=== PATIENT | female | born 1975 | race American Indian/Alaskan Native ===

== ENCOUNTER 2016-10-18 11:04 | Outpatient (CLI) | payer BC ==
--- NOTE | 2016-10-18 14:34 | Mammography Report ---
Bilateral digital mammogram with tomosynthesis: Compared to 07/03/16. CAD study utilized. Findings: Scattered glandular parenchyma bilaterally. Oval density approximate 12:00 position right breast measuring 5 mm in diameter. Seen on tomosynthesis. Benign axilla. No microcalcification. Impression: Bone density right breast. Recommend sonographic examination. BI-RADS CATEGORY: 0 = Needs additional imaging evaluation ACR BI-RADS MAMMOGRAPHIC CODES: 0 = Needs additional imaging evaluation; 1 = Negative; 2 = Benign; 3 = Probably benign; 4 = Suspicious; 5 = Malignant; 6 = Known biopsy-proven malignancy COMMENT: 1. Dense breast tissue, i.e., adenosis, fibrocystic changes, etc., may obscure an underlying neoplasm. 2. Approximately 10% of cancers are not detected with mammography. 3. A negative mammography report should not delay biopsy if a clinically suspicious mass is present. COMMENT: Patient follow-up letters are generated in [employer].
== END 2016-10-18 11:05 | disposition home or self-care (01) ==
LOC: MAMMO 11:04
PROVIDERS: ATTEND Family Medicine
DX: Z12.31 Encounter for screening mammogram for malignant neoplasm of breast (principal)
CPT/HCPCS: 77067; G0202

== ENCOUNTER 2016-11-28 09:50 | Outpatient (CLI) | payer BC ==
--- NOTE | 2016-11-28 15:26 | Ultrasound Report ---
Right mammogram and right breast ultrasound: Additional compression imaging is performed based on recent screening exam of October 18. No abnormal findings appreciated in the CC compression of the medial breast. In the lateral projection there is an elongated area of slightly increased density measuring 16 mm. This is consistent with the findings on the fabio mammogram. Global right breast ultrasound failed to identify any evidence of mass or shadowing. Impression: Probably benign density of the right breast. Recommendation: Repeat mammogram in 6 months to reevaluate finding. The findings and recommendations have been discussed with the patient. BI-RADS CATEGORY: 3 = Probably benign ACR BI-RADS MAMMOGRAPHIC CODES: 0 = Needs additional imaging evaluation; 1 = Negative; 2 = Benign; 3 = Probably benign; 4 = Suspicious; 5 = Malignant; 6 = Known biopsy-proven malignancy COMMENT: 1. Dense breast tissue, i.e., adenosis, fibrocystic changes, etc., may obscure an underlying neoplasm. 2. Approximately 10% of cancers are not detected with mammography. 3. A negative mammography report should not delay biopsy if a clinically suspicious mass is present.
== END 2016-11-28 09:51 | disposition home or self-care (01) ==
LOC: MAMMO 09:50
PROVIDERS: ATTEND Family Medicine
DX: R92.8 Other abnormal and inconclusive findings on diagnostic imaging of breast (principal)
CPT/HCPCS: 76641; G0206

== ENCOUNTER 2017-06-04 12:22 | Outpatient (CLI) | payer BC ==
--- NOTE | 2017-06-04 13:49 | Mammography Report ---
RIGHT DIGITAL DIAGNOSTIC MAMMOGRAM : 06/04/17 12:22:00 CLINICAL: Six month followup for asymmetry COMPARISON:10/18/16 and 11/28/16 mammograms. FINDINGS: Routine views plus a CC spot compression view were performed. Normal fibroglandular structures with no mass, architectural distortion or suspicious calcifications. IMPRESSION: Negative Mammogram. BI-RADS CATEGORY: 1 -- Negative RECOMMENDATION: Return to routine mammographic screening. ACR BI-RADS MAMMOGRAPHIC CODES: 0 = Needs additional imaging evaluation; 1 = Negative; 2 = Benign; 3 = Probably benign; 4 = Suspicious; 5 = Malignant; 6 = Known biopsy-proven malignancy COMMENT: 1. Dense breast tissue, i.e., adenosis, fibrocystic changes, etc., may obscure an underlying neoplasm. 2. Approximately 10% of cancers are not detected with mammography. 3. A negative mammography report should not delay biopsy if a clinically suspicious mass is present. COMMENT: Patient follow-up letters are generated via our [employer] application.
== END 2017-06-04 12:23 | disposition home or self-care (01) ==
LOC: MAMMO 12:22
PROVIDERS: ATTEND Family Medicine
DX: R92.2 Inconclusive mammogram (principal)
CPT/HCPCS: G0206-RT

== ENCOUNTER 2018-05-28 07:39 | Outpatient (CLI) | payer BC ==
--- NOTE | 2018-05-28 08:23 | Mammography Report ---
Bilateral mammogram: Compared to 10/18/16 and and 06/04/17. CAD study utilized. Findings: Predominance adipose tissue bilaterally. Benign density right breast without interval change. No microcalcification. Benign axillary nodes clear Impression: Benign findings. Annual followup recommended. BI-RADS CATEGORY: 2 = Benign ACR BI-RADS MAMMOGRAPHIC CODES: 0 = Needs additional imaging evaluation; 1 = Negative; 2 = Benign; 3 = Probably benign; 4 = Suspicious; 5 = Malignant; 6 = Known biopsy-proven malignancy COMMENT: 1. Dense breast tissue, i.e., adenosis, fibrocystic changes, etc., may obscure an underlying neoplasm. 2. Approximately 10% of cancers are not detected with mammography. 3. A negative mammography report should not delay biopsy if a clinically suspicious mass is present. COMMENT: Patient follow-up letters are generated in [employer].
== END 2018-05-28 07:40 | disposition home or self-care (01) ==
LOC: MAMMO 07:39
PROVIDERS: ATTEND Obstetrics & Gynecology
DX: Z12.31 Encounter for screening mammogram for malignant neoplasm of breast (principal)
CPT/HCPCS: 77067

== ENCOUNTER 2019-01-15 13:01 | Outpatient (CLI) | payer BC ==
--- NOTE | 2019-01-15 13:43 | XRay Report ---
BILATERAL ANKLES, 3 VIEWS History: Bilateral ankle pain. Findings: Normal bone mineralization. No acute osseous findings or joint pathology is detected. The soft tissues are unremarkable. Impression: Bilateral ankles within normal limits.
--- NOTE | 2019-01-15 13:43 | XRay Report ---
BILATERAL FEET, 3 VIEWS History: Bilateral foot pain. Findings: Normal bone mineralization. Small to medium bilateral plantar spurs are identified. The bony structures are intact. The joint spaces are normal. The soft tissues are unremarkable. Impression: Bilateral plantar spurs.
== END 2019-01-15 13:02 | disposition home or self-care (01) ==
LOC: XRAY 13:01
PROVIDERS: ATTEND Podiatrist Foot & Ankle Surgery
DX: M19.072 Primary osteoarthritis, left ankle and foot (principal); M19.071 Primary osteoarthritis, right ankle and foot; M77.31 Calcaneal spur, right foot; M77.32 Calcaneal spur, left foot

== ENCOUNTER 2019-01-27 06:46 | Outpatient (CLI) | payer BC ==
[2019-01-27 07:11] LABS: Bilirubin,Urine NEG (Negative); Blood,Urine NEG (Negative); Color,Urine Straw (Yellow); Protein,Urine <15 mg/dL mg/dL (Negative); Urobilinogen,Urine < 2.0 mg/dL (<2.0)
[2019-01-27 07:20] LABS: WBC,Urine < 1.0 /HPF (0.0-6.0)
[2019-01-27 07:30] LABS: Eosinophils # (Auto) 0.1 K/mm3 (0.0-0.4); Eosinophils % (Auto) 2.2 % (0.0-4.3); Hematocrit 39.2 % (30.3-42.9); Hemoglobin 12.8 gm/dl (10.1-14.3); Lymphocytes # (Auto) 1.1 K/mm3 (1.2-5.4); Lymphocytes % (Auto) 26.8 % (13.4-35.0); Mean Corpuscular HGB Conc 33 % (30-34); Mean Corpuscular Volume 85 fl (79-97); Monocytes # (Auto) 0.4 K/mm3 (0.0-0.8); Monocytes % (Auto) 10.7 % (0.0-7.3); Platelet Count 243 K/mm3 (140-440); Red Cell Distribution Width 14.6 % (13.2-15.2)
[2019-01-27 07:52] LABS: Erythrocyte Sedimentation Rate 16 mm/Hr (0-20)
[2019-01-27 14:39] LABS: Alanine Aminotransferase 13 units/L (7-56); Albumin 4.2 g/dL (3.9-5); BUN/Creatinine Ratio 17; Blood Urea Nitrogen 12 mg/dL (7-17); Calcium 9.6 mg/dL (8.4-10.2); Hemolysis Index 9
[2019-01-27 20:10] LABS: Chol/HDL Ratio 2.06 %; HDL Cholesterol 74 mg/dL (40-59); LDL Cholesterol,Direct 72 mg/dL (50-130)
[2019-01-29 21:55] LABS: ANA Screen, IFA Negative (Negative)
[2019-01-30 11:27] LABS: Vitamin D, 25-OH, D2 <4 ng/mL
== END 2019-01-27 06:47 | disposition home or self-care (01) ==
LOC: LAB 06:46
DX: Z13.828 Encounter for screening for other musculoskeletal disorder (principal); Z13.1 Encounter for screening for diabetes mellitus; R79.89 Other specified abnormal findings of blood chemistry
CPT/HCPCS: 36415; 80053; 80061; 81001; 82306; 82607; 82747; 83036; 84443; 85025; 85652; 86038; 86140

== ENCOUNTER 2020-07-06 06:46 | Outpatient (CLI) | payer BC ==
[2020-07-06 07:38] LABS: Basophils % (Auto) 1.1 % (0.0-1.8); Eosinophils # (Auto) 0.1 K/mm3 (0.0-0.4); Eosinophils % (Auto) 2.1 % (0.0-4.3); Hematocrit 35.8 % (30.3-42.9); Hemoglobin 12.3 gm/dl (10.1-14.3); Lymphocytes % (Auto) 27.7 % (13.4-35.0); Mean Corpuscular HGB Conc 34 % (30-34); Mean Corpuscular Volume 83 fl (79-97); Monocytes # (Auto) 0.5 K/mm3 (0.0-0.8); Monocytes % (Auto) 13.5 % (0.0-7.3); Platelet Count 247 K/mm3 (140-440); Red Blood Count 4.31 M/mm3 (3.65-5.03); Red Cell Distribution Width 14.9 % (13.2-15.2)
[2020-07-06 08:09] LABS: Alanine Aminotransferase 17 units/L (7-56); BUN/Creatinine Ratio 21; Blood Urea Nitrogen 17 mg/dL (7-17); Calcium 9.4 mg/dL (8.4-10.2); Chol/HDL Ratio 2.14 %; HDL Cholesterol 90 mg/dL (40-59); Hemolysis Index 0; LDL Cholesterol,Direct 107 mg/dL (50-130)
--- NOTE | 2020-07-06 10:20 | XRay Report ---
CHEST 2 VIEWS INDICATION / CLINICAL INFORMATION: SHORTNESS OF BREATH. COMPARISON: None available. FINDINGS: SUPPORT DEVICES: None. HEART / MEDIASTINUM: No significant abnormality. LUNGS / PLEURA: No significant pulmonary or pleural abnormality. No pneumothorax. ADDITIONAL FINDINGS: No significant additional findings. IMPRESSION: 1. No acute findings. Signer Name: Fredy Estrella MD Signed: 07/06/2020 10:16 AM Workstation Name: [id number]
[2020-07-09 13:40] LABS: Vitamin D, 25-OH, D2 <4 ng/mL
== END 2020-07-06 06:47 | disposition home or self-care (01) ==
LOC: XRAY 06:46
PROVIDERS: ATTEND Internal Medicine
DX: R06.02 Shortness of breath (principal)
CPT/HCPCS: 36415; 71046; 80053; 80061; 82306; 82607; 83036; 84443; 85025

== ENCOUNTER 2020-09-28 09:41 | Outpatient (CLI) | payer BC ==
--- NOTE | 2020-09-28 10:41 | Mammography Report ---
BILATERAL DIGITAL SCREENING MAMMOGRAM WITH CAD HISTORY: Screening mammogram. TECHNIQUE: Routine digital mammographic imaging performed. This examination was interpreted with juan carlos perdomo benefit of Computer-aided Detection analysis. COMPARISON: 08/28/2019, 05/28/2018. FINDINGS: Breast Density: scattered fibroglandular appearance of the breast tissue. Digital CC and MLO views demonstrate no mammographic evidence of malignancy. IMPRESSION: No mammographic evidence of malignancy. If the clinical examination remains stable, recommend bilate ral mammogram in approximately one year. BIRADS 1: Negative. FURTHER INFORMATION: According to the [employer], yearly mammograms are recommend ed starting at age 40 and continuing as long as a woman is in good health. Clinical Breast Exams shou ld be part of a periodic health exam-about every 3 years for women in their 20s and 30s and every yea r for women 40 and over. Breast self exam is an option for women starting in their 20s. Any breast ch luis noted on a breast self exam should be reported promptly to the patient's healthcare provider. Br east MRI is recommended for women with an approximately 20-25% or greater lifetime risk of breast can cer, including women with a strong family history of breast or ovarian cancer and women who have been treated for Hodgkin's disease. A negative Mammography report should not discourage follow up or biopsy of a clinically significant f inding and/or abnormality. Dense breast tissue may obscure small neoplasms. The patient will be entered into a reminder system with a target due date for the next screening mamm ogram. Signer Name: Dejuan Bello MD Signed: 09/28/2020 10:37 AM Workstation Name: [id number]
== END 2020-09-28 09:42 | disposition home or self-care (01) ==
LOC: MAMMO 09:41
PROVIDERS: ATTEND Obstetrics & Gynecology
DX: Z12.31 Encounter for screening mammogram for malignant neoplasm of breast (principal)
CPT/HCPCS: 77067

== ENCOUNTER 2020-11-22 12:18 | Outpatient (CLI) | payer BC ==
--- NOTE | 2020-11-22 14:23 | XRay Report ---
RIGHT KNEE, 2 views INDICATION: Pain. COMPARISON: None. FINDINGS: Frontal and lateral views of the knee labeled right were obtained. There is no evidence of fracture or dislocation. Medial joint space narrowing with moderate osteoarthritic change. Mild mason lofemoral compartment osteoarthritic change. No joint effusion. IMPRESSION: Right knee without evidence of acute osseous injury. Moderate medial compartment osteoarthritic change. Signer Name: Dejuan Bello MD Signed: 11/22/2020 2:18 PM Workstation Name: [id number]
== END 2020-11-22 12:19 | disposition home or self-care (01) ==
LOC: XRAY 12:18
PROVIDERS: ATTEND Internal Medicine
DX: M17.11 Unilateral primary osteoarthritis, right knee (principal)

== ENCOUNTER 2020-11-28 14:35 | Outpatient (CLI) | payer BC ==
--- NOTE | 2020-11-28 16:28 | Magnetic Resonance Report ---
MRI RIGHT KNEE WITHOUT CONTRAST INDICATION / CLINICAL INFORMATION: Right knee pain.. TECHNIQUE: Multiplanar, multisequence MR images were obtained. No contrast used. COMPARISON: Radiograph the right knee 11/22/2020 FINDINGS: ACL: No significant abnormality. PCL: No significant abnormality. DISTAL QUADRICEPS TENDON: No significant abnormality. PATELLAR TENDON: No significant abnormality. MEDIAL MENISCUS: Degenerative fraying and intermediate signal abnormality contacting the inferior lilia nt surface at the body. LATERAL MENISCUS: No significant abnormality. POSTEROLATERAL CORNER: No significant abnormality. MCL: No significant abnormality. LCL: No significant abnormality. DISTAL IT BAND: No significant abnormality. PATELLOFEMORAL ALIGNMENT: No significant abnormality. 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 JOINT SPACE: Trace joint effusion and synovitis. Small popliteal cyst. There is a focal soft tissue a niko of decreased signal measuring 2.9 x 2.8 x 1.2 cm involving the anterior joint space at the trochl ear groove. This area demonstrates mild adjacent edema on PD sequences with blooming artifacts noted on gradient imaging BONES: No significant bone marrow edema. No fracture. No osseous lesion. SOFT TISSUES: No significant abnormality. ADDITIONAL FINDINGS: None. IMPRESSION: 1. Focal PVNS involving the anterior joint space. 2. 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 There is deg enerative fraying at the body of the medial meniscus without discrete tear. 3. No acute ligament injury. Report dictated by: Kraig Contreras MD Report dictated on: 11/28/2020 3:02 PM I have reviewed the images, agree with this report, and edited this report as needed. Signer Name: Jefe Hughes MD Signed: 11/28/2020 4:23 PM Workstation Name: [id number]
== END 2020-11-28 14:36 | disposition home or self-care (01) ==
LOC: MRI 14:35
PROVIDERS: ATTEND Internal Medicine
DX: S83.241A Other tear of medial meniscus, current injury, right knee, initial encounter (principal); M17.11 Unilateral primary osteoarthritis, right knee; M25.461 Effusion, right knee; X58.XXXA Exposure to other specified factors, initial encounter; Y93.89 Activity, other specified; Y92.89 Other specified places as the place of occurrence of the external cause; Y99.8 Other external cause status
CPT/HCPCS: 73721

== ENCOUNTER 2021-01-11 06:42 | Outpatient (CLI) | payer BC ==
[2021-01-11 07:23] LABS: Chol/HDL Ratio 2.63 %
== END 2021-01-11 06:43 | disposition home or self-care (01) ==
LOC: LAB 06:42
PROVIDERS: ATTEND Internal Medicine
DX: Z13.220 Encounter for screening for lipoid disorders (principal); R73.03 Prediabetes
CPT/HCPCS: 36415; 80061; 83036